=== PATIENT | female | born 1995 | race Hispanic/Latino ===

== ENCOUNTER 2017-06-14 23:43 | Inpatient (IN) | payer OTHER ==
--- NOTE | 2017-06-15 00:29 | ED PDOC ---
Arrival/HPI - General Chief Complaint: Psychiatric Evaluation Time Seen by Provider: 06/14/17 23:49 Historian: Patient - History of Present Illness Narrative History of Present Illness (Text): 06/15/17 00:27 A 22 year old female, whose past medical history includes depression and anxiety , presents to the emergency department for Xanax and Buspar medication overdose an hour and half prior to arrival. Patient's mother reports vomiting prior to arrival. Patient doesn't recall how much medication she overdosed on. Patient wouldn't elaborate any further as to why she took medication. Patient notes she had suicidal thoughts in the past, but this was the first time she tried to hurt herself. Notes she ran out of her Lexapro medications a week ago. Denies any other complaints at this time. Psychiatrist: Dr. Mac Medications: Xanax, Buspar, Lexapro Time/Duration: 1-3 hours Symptom Onset: Sudden Activities at Onset: Rest Context: Home Past Medical History - Provider Review Nursing Documentation Reviewed: Yes - Psychiatric Hx Anxiety: Yes Hx Depression: Yes Hx Substance Use: No Family/Social History - Physician Review Nursing Documentation Reviewed: Yes Family/Social History: No Known Family HX Smoking Status: Never Smoked Hx Alcohol Use: Yes (beer) Frequency of alcohol use: Daily Hx Substance Use: No Allergies/Home Meds Allergies/Adverse Reactions: Allergies No Known Allergies Allergy (Verified 06/15/17 00:02) Home Medications: Home Meds Medication Instructions Recorded Confirmed Alprazolam [Xanax] 0.25 mg PO BID 06/15/17 06/15/17 Escitalopram [Lexapro] 30 mg PO DAILY 06/15/17 06/15/17 busPIRone [Buspar] 30 mg PO DAILY 06/15/17 06/15/17 Review of Systems - Physician Review All systems were reviewed & negative as marked: Yes - Review of Systems Constitutional: absent: Fevers, Other (chills) Neurological: absent: Headache, Dizziness Psychiatric: Depression, Suicidal Ideation Physical Exam Vital Signs Reviewed: Yes Vital Signs Temp Pulse Resp BP Pulse Ox 06/15/17 02:18 58 L 18 113/62 99 06/15/17 00:22 112 H 20 116/77 98 06/15/17 00:03 98.2 F Temperature: Afebrile Appearance: Positive for: Well-Appearing, Non-Toxic, Comfortable Pain Distress: None Mental Status: Positive for: Alert and Oriented X 3 - Systems Exam Head: Present: Atraumatic, Normocephalic Pupils: Present: PERRL Extroacular Muscles: Present: EOMI Conjunctiva: Present: Normal Mouth: Present: Moist Mucous Membranes Neck: Present: Normal Range of Motion Respiratory/Chest: Present: Clear to Auscultation, Good Air Exchange. No: Respiratory Distress, Accessory Muscle Use Cardiovascular: Present: Regular Rate and Rhythm, Normal S1, S2. No: Murmurs Abdomen: Present: Normal Bowel Sounds. No: Tenderness, Distention, Peritoneal Signs Back: Present: Normal Inspection Upper Extremity: Present: Normal Inspection. No: Cyanosis, Edema Lower Extremity: Present: Normal Inspection. No: Edema Neurological: Present: GCS=15, CN II-XII Intact, Speech Normal Skin: Present: Warm, Dry, Normal Color. No: Rashes Psychiatric: Present: Alert, Oriented x 3, Normal Insight, Normal Concentration Medical Decision Making ED Course and Treatment: 06/15/17 00:25 Impression: A 22 year old female with Xanax and Buspar medication overdose. Plan: -- EKG -- chest xray -- labs -- Urinalysis -- Reassess and disposition Progress Notes: 06/15/17 00:40 EKG: Ordered, reviewed, and independently interpreted the EKG. Rate : 77 BPM Rhythm : NSR Interpretation : No ST-segment elevations or depressions, normal intervals 06/15/17 01:24 Chest xray: No acute process, interpreted by me. 06/15/17 04:00 Patient remains awake and alert. Poison control notified prior. Patient is medically cleared for PES evaluation. She was seen and evaluated by MARILYN Basurto. Case discussed with psychiatrist, who accepts patient to psychiatric floor for further treatment. I have discussed the results and plan with the patient, who expresses understanding. Patient given the opportunity to ask question, all questions were answered and there is agreement with the plan to be admitted to the hospital. - Lab Interpretations Lab Results: 06/15/17 00:20 06/15/17 00:20 Lab Results 06/15/17 00:20: Alcohol, Quantitative 17 H 06/15/17 00:20: Salicylates < 1 L, Acetaminophen < 10.0 L 06/15/17 00:20: Urine Opiates Screen Negative, Urine Methadone Screen Negative, Ur Barbiturates Screen Negative, Ur Phencyclidine Scrn Negative, Ur Amphetamines Screen Negative, U Benzodiazepines Scrn Positive, U Oth Cocaine Metabols Negative, U Cannabinoids Screen Negative 06/15/17 00:20: Sodium 139, Potassium 3.6, Chloride 102, Carbon Dioxide 25, Anion Gap 16, BUN 10, Creatinine 0.7, Est GFR ( Amer) > 60, Est GFR (Non- Af Amer) > 60, Random Glucose 89, Calcium 9.2, Total Bilirubin 0.8, AST 23, ALT 26, Alkaline Phosphatase 64, Total Protein 6.9, Albumin 4.3, Globulin 2.6, Albumin/Globulin Ratio 1.7 06/15/17 00:20: WBC 4.2 L, RBC 4.07, Hgb 12.7, Hct 36.7, MCV 90.2, MCH 31.2, MCHC 34.6, RDW 13.4, Plt Count 251, MPV 9.1, Gran % 58.4, Lymph % (Auto) 33.7, [place] % (Auto) 6.5 H, Eos % (Auto) 1.2 L, Baso % (Auto) 0.2, Gran # 2.44, Lymph # 1.4, [place] # 0.3, Eos # 0.1, Baso # 0.01 06/15/17 00:10: Urine HCG, Qual Negative 06/15/17 00:10: Urine Color Yellow, Urine Appearance Clear, Urine pH 6.0, Ur Specific [place] 1.010, Urine Protein Negative, Urine Glucose (UA) Negative, Urine Ketones Negative, Urine Blood Small H, Urine Nitrate Negative, Urine Bilirubin Negative, Urine Urobilinogen 0.2, Ur Leukocyte Esterase Small H, Urine RBC 1 - 3, Urine WBC 2 - 5, Ur Epithelial Cells 1 - 3, Urine Bacteria Mod I have reviewed the lab results: Yes - RAD Interpretation Radiology Orders: 06/15/17 00:10 CHEST PORTABLE [RAD] Stat - EKG Interpretation Interpreted by ED Physician: Yes Type: 12 lead EKG - Scribe Statement The provider has reviewed the documentation as recorded by the Erickibestefania Flynn Provider Scribe Attestation: All medical record entries made by the Scribe were at my direction and personally dictated by me. I have reviewed the chart and agree that the record accurately reflects my personal performance of the history, physical exam, medical decision making, and the department course for this patient. I have also personally directed, reviewed, and agree with the discharge instructions and disposition. Disposition/Present on Arrival - Present on Arrival Any Indicators Present on Arrival: No History of DVT/PE: No History of Uncontrolled Diabetes: No Urinary Catheter: No History of Decub. Ulcer: No History Surgical Site Infection Following: None - Disposition Have Diagnosis and Disposition been Completed?: Yes Diagnosis: Drug overdose, Depression, Suicidal ideation Disposition: HOSPITALIZED Disposition Time: 04:27 Patient Plan: Admission Patient Problems: Current Active Problems Problem Status Onset Depression Acute Drug overdose Acute Suicidal ideation Acute Condition: STABLE Forms: [employer] (Japanese)
[2017-06-15 00:53] LABS: BASO # 0.01 K/mm3 (0.0-2.0); BASO % 0.2 % (0.0-3.0); EOS # 0.1 (0.0-0.7); EOS % 1.2 % (1.5-5.0); GRAN # 2.44 (1.4-6.5); GRAN % 58.4 % (50.0-68.0); HEMATOCRIT 36.7 % (36.0-48.0); LYMPH # 1.4 (1.2-3.4); LYMPH % 33.7 % (22.0-35.0); MEAN CELL VOLUME 90.2 fl (80.0-105.0); MEAN CORPUSCULAR HEMOGLOBIN 31.2 pg (25.0-35.0); MEAN CORPUSCULAR HGB CONC 34.6 g/dl (31.0-37.0); MEAN PLATELET VOLUME 9.1 fl (7.0-11.0); MONO # 0.3 (0.1-0.6); MONO % 6.5 % (1.0-6.0); RED CELL DISTRIBUTION WIDTH 13.4 % (11.5-14.5); WHITE BLOOD COUNT 4.2 10^3/ul (4.5-11.0)
[2017-06-15 00:53] LABS: URINE BILIRUBIN NEGATIVE (NEGATIVE); URINE BLOOD SMALL (NEGATIVE); URINE GLUCOSE (UA) NEGATIVE (NEGATIVE); URINE KETONE NEGATIVE (NEGATIVE); URINE LEUKOCYTE ESTERASE SMALL Leu/uL (NEGATIVE); URINE PROTEIN NEGATIVE mg/dL (<30 mg/dL); URINE UROBILINOGEN 0.2 E.U./dL (<1 E.U./dL)
[2017-06-15 00:57] LABS: URINE APPEARANCE CLEAR (CLEAR); URINE COLOR YELLOW (YELLOW)
[2017-06-15 01:05] LABS: URINE BACTERIA MOD (NEG)
[2017-06-15 01:07] LABS: ALB/GLOB RATIO 1.7 (1.1-1.8); ALKALINE PHOSPHATASE 64 U/L (38-126); ALT/SGPT 26 U/L (7-56); AST/SGOT 23 U/L (14-36); BILIRUBIN,TOTAL 0.8 mg/dL (0.2-1.3); BLOOD UREA NITROGEN 10 mg/dL (7-21); CALCIUM 9.2 mg/dL (8.4-10.5); CARBON DIOXIDE 25 mmol/L (21-33); CHLORIDE 102 mmol/L (98-107); GFR AFRICAN-AMERICAN > 60; GLUCOSE,RANDOM 89 mg/dL (70-110); POTASSIUM 3.6 mmol/L (3.6-5.0); SODIUM 139 mmol/L (132-148); TOTAL PROTEIN 6.9 g/dL (5.8-8.3)
--- NOTE | 2017-06-15 06:59 | PCM.BM ---
<Ottoniel Wilkes - Last Filed: 06/15/17 07:05> Treatment Plan Problems - Problems identified on initial assessmt depression Date Initiated: 06/15/17 Time Initiated: 06:00 Assessment reference: NA Status: Active Treatment assets and liabiliti Patient Assests: ADL independent, good support system, good past tx response - Milieu Protocol Maintain good personal hygiene: daily Encourage regular showers, daily Remind patient to perform daily oral care, daily Assist patient to perform ADL's Maintain personal safety: daily Educate patient to report safety concerns to staff, daily Monitor environment for contraband/sharps Medication safety: Monitor for expected outcome, potential side effects: daily, Assess barriers to learning: daily, Assess readiness for medication education: daily Family Contact Family involvement: Family/SO is involved Family contact: Patient declines to allow family contact at present Family contact name: Sendy Rodriguez *[phone] - Goals for Treatment Patient goals for treatment: To get better Discharge/Continuing Care - Education Needs Education Needs: Patient Medication, Patient Diagnosis/Disease Process, Patient Coping Skills - Discharge Discharge Criteria: Free of Suicidal thoughts <Maddi Simons - Last Filed: 06/15/17 09:50> - Diagnosis (1) MDD (major depressive disorder) Status: Acute Interventions: 06/15/17 09:50 Psychoeducation Psychopharmacology/adjustment of medications as needed/ monitoring possible side effects Evaluate pt on daily basis Compliance with medications and follow up appointments Suicide and homicide risk assessment and prevention Relapse prevention Reduction of symptoms Improve functional status Family involvement As outpatient: cognitive behavioral therapy (2) THI (generalized anxiety disorder) Status: Acute Interventions: 06/15/17 09:50 Psychoeducation Psychopharmacology/adjustment of medications as needed/ monitoring possible side effects Evaluate pt on daily basis Compliance with medications and follow up appointments Suicide and homicide risk assessment and prevention, coping strategies, safety plan Reduction of symptoms Relaxation techniques and breathing exercises Improve functional status Family involvement As outpatient: cognitive behavioral therapy <Janel Guzman - Last Filed: 06/16/17 08:11>
[2017-06-15 07:44] LABS: CHOLESTEROL 203 mg/dL (130-200)
[2017-06-15] MEDS ORDERED: Magnesium Hydroxide Susp 30 ml UD PO PRN (08:52)
[2017-06-15] MEDS ORDERED: Alum-Mag Hydrox-Simethicone Susp (30 mL) PO PRN (08:52)
--- NOTE | 2017-06-15 10:42 | CP.PCM.CON ---
<Izabella Gonzales - Last Filed: 06/16/17 10:07> History of Present Illness - History of Present Illness History of Present Illness: Medicine Consult Note: Patient is a 22 year old female with past medical hx of anxiety/depression [place] [facility] [place]. Patient was home and took xanax and buspar, (unclear how many pills she took) with alcohol. Patient stated mother made her vomit and brought her to the ED. Currently patient is without any complaints. States that this was the first suicide attempt. Currently denies SI/HI, denies auditory/visual hallucinations. Denies headaches, dizziness , cp, palpitations, sob, abdominal pain, urinary symptoms, changes in bowel habits. 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 [employer] Family History: Older sister with bipolar d/o and hx of suicide attempts Review of Systems - Review of Systems All systems: reviewed and no additional remarkable complaints except - Constitutional Constitutional: absent: Anorexia, Chills, Fever - EENT Eyes: absent: Blurred Vision, Change in Vision Ears: absent: Decreased Hearing, Dizziness - Cardiovascular Cardiovascular: absent: Chest Pain, Dyspnea, Lightheadedness, Palpitations - Gastrointestinal Gastrointestinal: absent: Abdominal Pain, Bloating, Constipation, Cramping, Diarrhea, Nausea, Vomiting - Genitourinary Genitourinary: absent: Difficulty Urinating, Dysuria, Urinary Frequency - Musculoskeletal Musculoskeletal: absent: Back Pain - Neurological Neurological: absent: Confusion, Dizziness, Headaches, Tingling, Weakness - Psychiatric Psychiatric: Anxiety, Depression. absent: Auditory Hallucinations, Homicidal Ideation, Suicidal Ideation, Visual Hallucinations Past Patient History - Past Social History Smoking Status: Never Smoked - CARDIAC Hx Cardiac Disorders: No Hx Hypertension: No - PULMONARY Hx Tuberculosis: No - NEUROLOGICAL HX Cerebrovascular Accident: No Hx Seizures: No - HEMATOLOGICAL/ONCOLOGICAL Hx Cancer: No Hx Human Immunodeficiency Virus (HIV): No - GENITOURINARY/GYNECOLOGICAL Hx Sexually Transmitted Disorders: No - PSYCHIATRIC Hx Anxiety: Yes Hx Depression: Yes Hx Substance Use: No - SURGICAL HISTORY Hx Surgeries: No - ANESTHESIA Hx Anesthesia: No Meds Allergies/Adverse Reactions: Allergies Allergy/AdvReac Type Severity Reaction Status Date / Time No Known Allergies Allergy Verified 06/15/17 06:20 - Medications Medications: Current Medications Acetaminophen (Tylenol 325mg Tab) 650 mg PO Q4 PRN PRN Reason: Pain, moderate (4-7) Al Hydrox/Mg Hydrox/Simethicone (Maalox Plus 30 Ml) 30 ml PO DAILY PRN PRN Reason: Upset Stomach Magnesium Hydroxide (Milk Of Magnesia) 30 ml PO DAILY PRN PRN Reason: Constipation Physical Exam - Constitutional Appears: Well, No Acute Distress - Head Exam Head Exam: ATRAUMATIC, NORMAL INSPECTION - Eye Exam Eye Exam: EOMI, Normal appearance Pupil Exam: NORMAL ACCOMODATION - ENT Exam ENT Exam: Mucous Membranes Moist - Neck Exam Neck exam: Positive for: Full Rom - Respiratory Exam Respiratory Exam: Clear to Auscultation Bilateral, NORMAL BREATHING PATTERN. absent: Rales, Rhonchi, Wheezes - Cardiovascular Exam Cardiovascular Exam: REGULAR RHYTHM, +S1 - GI/Abdominal Exam GI & Abdominal Exam: Normal Bowel Sounds, Soft. absent: Guarding, Rebound, Rigid, Tenderness - Extremities Exam Extremities exam: Positive for: normal inspection, pedal pulses present. Negative for: calf tenderness - Back Exam Back exam: NORMAL INSPECTION - Neurological Exam Neurological exam: Alert, CN II-XII Intact, Normal Gait, Oriented x3 - Psychiatric Exam Psychiatric exam: Anxious, Depressed, Normal Affect - Skin Skin Exam: Dry, Normal Color, Warm Results - Vital Signs Recent Vital Signs: Last Vital Signs Temp 98.1 F 06/15/17 04:00 Pulse 68 06/15/17 04:00 Resp 18 06/15/17 04:00 BP 118/68 06/15/17 04:00 Pulse Ox 100 06/15/17 04:00 - Labs Result Diagrams: 06/15/17 00:20 06/15/17 00:20 Assessment & Plan - Assessment and Plan (Free Text) Assessment: 22 year old female with past medical history of anxiety and depression presents for suicide attempt by pill ingestion. Plan: 1. Suicidal Ideation; Suicide attempt -Currently denies SI or HI -Utox positive for benzos -Alcohol level 17 -Management per psych team 2. Hypercholesterolemia -Encouraging exercise and diet modification at this time -[employer] Worker referral <Rangasamy,Ajantha - Last Filed: 06/16/17 11:58> Meds - Medications Medications: Current Medications Acetaminophen (Tylenol 325mg Tab) 650 mg PO Q4 PRN PRN Reason: Pain, moderate (4-7) Al Hydrox/Mg Hydrox/Simethicone (Maalox Plus 30 Ml) 30 ml PO DAILY PRN PRN Reason: Upset Stomach Aripiprazole (Abilify) 5 mg PO BID LUISITO Fluoxetine HCl (Prozac) 20 mg PO DAILY LUISITO Home Med (Home Med) 1 unit PO DAILY LUISITO Last Admin: 06/16/17 08:38 Dose: 1 unit Magnesium Hydroxide (Milk Of Magnesia) 30 ml PO DAILY PRN PRN Reason: Constipation Mirtazapine (Remeron) 7.5 mg PO HS PRN PRN Reason: Insomnia Results - Vital Signs Recent Vital Signs: Last Vital Signs Temp 98.3 F 06/16/17 06:55 Pulse 93 H 06/16/17 06:55 Resp 20 06/16/17 06:55 BP 97/57 L 06/16/17 06:55 Pulse Ox 100 06/15/17 04:00 - Labs Result Diagrams: 06/15/17 00:20 06/15/17 00:20 Attending/Attestation - Attestation I have personally seen and examined this patient.: Yes I have fully participated in the care of the patient.: Yes I have reviewed all pertinent clinical information: Yes Notes (Text): 06/16/17 11:56 attending note; Patient seen and examined with resident in psychiatric floor. Patient is a 22 year old female with past medical history of anxiety/depression [place] [facility] [place] Patient was home and took xanax and buspar. patient was evaluated in the ER. Clinically stable. Poison control informed. Patient was transferred to the psychiatric floor. Currently denies any symptoms. Patient is sleepy. urine drug screen is positive for benzos. Alcohol level is 17. Monitor closely. Chest x-ray reviewed. Labs reviewed. Elevated cholesterol level. Dietary education given. Will monitor closely. Upon discharge the patient will follow-up with PMD of choice. 06/16/17 11:57
--- NOTE | 2017-06-15 13:07 | RAD ---
HISTORY: overdose COMPARISON: No prior. FINDINGS: LUNGS: No active pulmonary disease. PLEURA: No significant pleural effusion identified, no pneumothorax apparent. CARDIOVASCULAR: Normal. OSSEOUS STRUCTURES: No significant abnormalities. VISUALIZED UPPER ABDOMEN: Normal. OTHER FINDINGS: None. IMPRESSION: No active disease.
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
--- NOTE | 2017-06-16 02:42 | CARD ---
APPROVED REPORT EKG Measurement Heart [id number] <Conclusion> Normal sinus rhythm Normal ECG
[2017-06-16] MEDS: [UNRECOGNIZED DRUG - MIXTURE] PO SCH (08:38)
--- NOTE | 2017-06-16 10:10 | CP.PCM.PN ---
<Izabella Gonzales - Last Filed: 06/16/17 10:12> Subjective - Date & Time of Evaluation Date of Evaluation: 06/16/17 Time of Evaluation: 10:07 - Subjective Subjective: Hospitalist Service Progress Note: Patient seen and examined at bedside. Per nursing no acute events overnight. Patient is more alert this morning, less tired. Offers no complaints at this time. Ambulating and tolerating diet. Denies fevers, chills, nausea, vomiting, headaches, dizziness, cp, palpitations, sob, abdominal pain, urinary symptoms. Denies auditory/visual hallucinations, denies SI/HI. Objective - Vital Signs/Intake and Output Vital Signs (last 24 hours): Temp Pulse Resp BP Pulse Ox 98.3 F 93 H 20 97/57 L 100 06/16/17 06:55 06/16/17 06:55 06/16/17 06:55 06/16/17 06:55 06/15/17 04:00 - Medications Medications: Current Medications Acetaminophen (Tylenol 325mg Tab) 650 mg PO Q4 PRN PRN Reason: Pain, moderate (4-7) Al Hydrox/Mg Hydrox/Simethicone (Maalox Plus 30 Ml) 30 ml PO DAILY PRN PRN Reason: Upset Stomach Aripiprazole (Abilify) 5 mg PO DAILY [facility] Last Admin: 06/16/17 08:38 Dose: 5 mg Fluoxetine HCl (Prozac) 10 mg PO DAILY [facility] Last Admin: 06/16/17 08:38 Dose: 10 mg Home Med (Home Med) 1 unit PO DAILY [facility] Last Admin: 06/16/17 08:38 Dose: 1 unit Magnesium Hydroxide (Milk Of Magnesia) 30 ml PO DAILY PRN PRN Reason: Constipation Mirtazapine (Remeron) 7.5 mg PO HS PRN PRN Reason: Insomnia - Constitutional Appears: Well, No Acute Distress - Head Exam Head Exam: ATRAUMATIC, NORMAL INSPECTION - Eye Exam Eye Exam: EOMI, Normal appearance Pupil Exam: NORMAL ACCOMODATION - ENT Exam ENT Exam: Mucous Membranes Moist - Neck Exam Neck Exam: Full ROM - Respiratory Exam Respiratory Exam: Clear to Ausculation Bilateral, NORMAL BREATHING PATTERN. absent: Rales, Rhonchi, Wheezes - Cardiovascular Exam Cardiovascular Exam: REGULAR RHYTHM, +S1, +S2 - GI/Abdominal Exam GI & Abdominal Exam: Soft. absent: Guarding, Rigid, Tenderness, Rebound - Extremities Exam Extremities Exam: Full ROM, Normal Inspection. absent: Calf Tenderness - Back Exam Back Exam: NORMAL INSPECTION - Neurological Exam Neurological Exam: Alert, Awake, Normal Gait, Oriented x3 Neuro motor strength exam: Left Upper Extremity: 5, Right Upper Extremity: 5, Left Lower Extremity: 5, Right Lower Extremity: 5 - Psychiatric Exam Psychiatric exam: Normal Affect, Normal Mood - Skin Skin Exam: Normal Color, Warm Assessment and Plan - Assessment and Plan (Free Text) Assessment: 22 year old female with past medical history of anxiety and depression presents for suicide attempt by pill ingestion. Plan: 1. Suicidal Ideation; Suicide attempt -Currently denies SI or HI -Utox positive for benzos -Alcohol level 17 -Management per psych team 2. Hypercholesterolemia -Encouraging exercise and diet modification at this time -[employer] referral -Patient is medically stable, will sign off at this time -Please reconsult as needed Izabella Gonzales DO PGY-1 <Alo Rosas - Last Filed: 06/16/17 12:34> Objective - Vital Signs/Intake and Output Vital Signs (last 24 hours): Temp Pulse Resp BP Pulse Ox 98.3 F 93 H 20 97/57 L 100 06/16/17 06:55 06/16/17 06:55 06/16/17 06:55 06/16/17 06:55 06/15/17 04:00 - Medications Medications: Current Medications Acetaminophen (Tylenol 325mg Tab) 650 mg PO Q4 PRN PRN Reason: Pain, moderate (4-7) Al Hydrox/Mg Hydrox/Simethicone (Maalox Plus 30 Ml) 30 ml PO DAILY PRN PRN Reason: Upset Stomach Aripiprazole (Abilify) 5 mg PO BID [facility] Fluoxetine HCl (Prozac) 20 mg PO DAILY [facility] Home Med (Home Med) 1 unit PO DAILY [facility] Last Admin: 06/16/17 08:38 Dose: 1 unit Magnesium Hydroxide (Milk Of Magnesia) 30 ml PO DAILY PRN PRN Reason: Constipation Mirtazapine (Remeron) 7.5 mg PO HS PRN PRN Reason: Insomnia Attending/Attestation - Attestation I have personally seen and examined this patient.: Yes I have fully participated in the care of the patient.: Yes I have reviewed all pertinent clinical information, including history, physical exam and plan: Yes Notes (Text): 06/16/17 12:33 attending note; Patient seen and examined with resident in psychiatric floor. Patient is a 22 year old female with past medical history of anxiety/depression presents to [facility] [place] for prescription drug overdose. Patient was home and took xanax and buspar. patient is more alert. But still depressed. Encourage increased by mouth intake. Blood presse on the lower side. but aymptomatic. monitor closely. patient is medically stable. Please reconsult as needed. Upon discharge the patient will follow-up with PMD of choice.
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
[2017-06-17] MEDS: [UNRECOGNIZED DRUG - MIXTURE] PO SCH (08:20)
--- NOTE | 2017-06-17 14:19 | PCM.PYCHPN ---
Psychiatric Progress Note - Psychiatric Progress Note Patient seen today, length of contact: 30min Patient Chief Complaint: "I am more balanced now.." Medical Problems: relatively healthy Diagnostic Results: 06/15/17 00:20 06/15/17 00:20 Lab Results 06/16/17 12:25: TSH 3rd Generation 0.75 06/15/17 00:20: Hemoglobin A1c 4.9 06/15/17 00:20: Triglycerides 73, Cholesterol 203 H, LDL Cholesterol Direct 133 H, HDL Cholesterol 66 H 06/15/17 00:20: Alcohol, Quantitative 17 H 06/15/17 00:20: Salicylates < 1 L, Acetaminophen < 10.0 L 06/15/17 00:20: Urine Opiates Screen Negative, Urine Methadone Screen Negative, Ur Barbiturates Screen Negative, Ur Phencyclidine Scrn Negative, Ur Amphetamines Screen Negative, U Benzodiazepines Scrn Positive, U Oth Cocaine Metabols Negative, U Cannabinoids Screen Negative 06/15/17 00:20: Sodium 139, Potassium 3.6, Chloride 102, Carbon Dioxide 25, Anion Gap 16, BUN 10, Creatinine 0.7, Est GFR ( Amer) > 60, Est GFR (Non- Af Amer) > 60, Random Glucose 89, Calcium 9.2, Total Bilirubin 0.8, AST 23, ALT 26, Alkaline Phosphatase 64, Total Protein 6.9, Albumin 4.3, Globulin 2.6, Albumin/Globulin Ratio 1.7 06/15/17 00:20: WBC 4.2 L, RBC 4.07, Hgb 12.7, Hct 36.7, MCV 90.2, MCH 31.2, MCHC 34.6, RDW 13.4, Plt Count 251, MPV 9.1, Gran % 58.4, Lymph % (Auto) 33.7, [place] % (Auto) 6.5 H, Eos % (Auto) 1.2 L, Baso % (Auto) 0.2, Gran # 2.44, Lymph # 1.4, [place] # 0.3, Eos # 0.1, Baso # 0.01 06/15/17 00:10: Urine HCG, Qual Negative 06/15/17 00:10: Urine Color Yellow, Urine Appearance Clear, Urine pH 6.0, Ur Specific [place] 1.010, Urine Protein Negative, Urine Glucose (UA) Negative, Urine Ketones Negative, Urine Blood Small H, Urine Nitrate Negative, Urine Bilirubin Negative, Urine Urobilinogen 0.2, Ur Leukocyte Esterase Small H, Urine RBC 1 - 3, Urine WBC 2 - 5, Ur Epithelial Cells 1 - 3, Urine Bacteria Mod Vital Signs Temp Pulse Resp BP Pulse Ox 06/16/17 06:55 98.3 F 93 H 20 97/57 L 06/15/17 16:00 98 H 97/55 L 06/15/17 04:00 98.1 F 68 18 118/68 100 06/15/17 02:18 58 L 18 113/62 99 06/15/17 00:22 112 H 20 116/77 98 06/15/17 00:03 98.2 F DSM 5 Symptoms Update: Shortly patient is 22-year-old female with unknown psychiatric h/o, unknown h/o suicidal attempts, self reported h/o depression, anxiety, denied h/ o suicidal attempts, pt was brought in by her mother s/p overdose on medications , pt made statements that she wanted to end up her live due to severe depression , pt was noncompliant with her medications for the past week (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 pt was seen and examined next to the nursing station, pt has some positive changes, less irritable, less dramatic, more pleasant. still pt appears to be depressed. pt was making provocative statements about access to guns (which seems to be not true), pt also said that she is an "alcoholic", which is not true either. pt seems to be over exaggerating, dramatic. pt was given assignment for safety plan: "first I will try to speak to my friends, then I will try to distract myself with the movies, then I will try to play games, if no help, then I will drink alcohol or take melatonin and sleep through that overwhelming feelings", pt was advised to stay on safe side and call 911 or go to the nearest ED. Pt tolerates meds well, no side effects observed or reported. AIMS 0, no EPS. MSE: Pt deemed to be reliable but guarded patient, but less suspicious. Pt looks stated age, acceptable personal hygiene, good ADLs, there is some psychomotor retardation, speech was: more productive, eye contact: fair, mood described: "I feel more leveled now", affect: constricted, but more reactive, thought process : goal directed, thought content: pt s/p suicidal attempt, at the moment of the interview contracted for safety, denied HI, pt denied v/a/t hallucinations, denied paranoid ideation, insight/judgment:improving, impulses are better controlled. Impression: r/o bipolar spectrum disorder, most recent episode depressed r/o borderline personality disorder Treatment plan: Milieu/structure/supportive therapy Medical consult appreciated, see medical team note for more detailed info Med management prozac 20mg po daily for depressive symptoms abilify 5 mg po bid for mood stabilization remeron 7.5hs for insomnia and depression Family involvement, family meeting requested for Tuesday Follow up on labs Will monitor closely SW evaluation for d/c planning Pt was educated about risk/benefits and alternatives of medications, coping strategies (safety plan, suicide prevention), relapse prevention, importance of follow up with psychiatrist and therapist, stay away from drugs/alcohol/smoking Medication Change: Yes (prozac and abilify increased) Medical Record Reviewed: Yes Consults ordered or reviewed: medical consult appreciated Mental Status Examination - Homicidal Ideation Homicidal Ideation: No Goal/Treatment Plan - Goal/Treatment Plan Need for Continued Stay: Remain at risks for inpatient hospitalization, Severe depression anxiety, Discharge may exacerbated symptoms, Severe functional impairment Estimated Date of D/C: 06/21/17
[2017-06-18] MEDS: [UNRECOGNIZED DRUG - MIXTURE] PO SCH (09:30)
--- NOTE | 2017-06-18 11:06 | PCM.PYCHPN ---
Psychiatric Progress Note - Psychiatric Progress Note Patient seen today, length of contact: 30min Patient Chief Complaint: "I am more balanced now.." Medical Problems: relatively healthy Diagnostic Results: 06/15/17 00:20 06/15/17 00:20 Lab Results 06/16/17 12:25: TSH 3rd Generation 0.75 06/15/17 00:20: Hemoglobin A1c 4.9 06/15/17 00:20: Triglycerides 73, Cholesterol 203 H, LDL Cholesterol Direct 133 H, HDL Cholesterol 66 H 06/15/17 00:20: Alcohol, Quantitative 17 H 06/15/17 00:20: Salicylates < 1 L, Acetaminophen < 10.0 L 06/15/17 00:20: Urine Opiates Screen Negative, Urine Methadone Screen Negative, Ur Barbiturates Screen Negative, Ur Phencyclidine Scrn Negative, Ur Amphetamines Screen Negative, U Benzodiazepines Scrn Positive, U Oth Cocaine Metabols Negative, U Cannabinoids Screen Negative 06/15/17 00:20: Sodium 139, Potassium 3.6, Chloride 102, Carbon Dioxide 25, Anion Gap 16, BUN 10, Creatinine 0.7, Est GFR ( Amer) > 60, Est GFR (Non- Af Amer) > 60, Random Glucose 89, Calcium 9.2, Total Bilirubin 0.8, AST 23, ALT 26, Alkaline Phosphatase 64, Total Protein 6.9, Albumin 4.3, Globulin 2.6, Albumin/Globulin Ratio 1.7 06/15/17 00:20: WBC 4.2 L, RBC 4.07, Hgb 12.7, Hct 36.7, MCV 90.2, MCH 31.2, MCHC 34.6, RDW 13.4, Plt Count 251, MPV 9.1, Gran % 58.4, Lymph % (Auto) 33.7, [place] % (Auto) 6.5 H, Eos % (Auto) 1.2 L, Baso % (Auto) 0.2, Gran # 2.44, Lymph # 1.4, [place] # 0.3, Eos # 0.1, Baso # 0.01 06/15/17 00:10: Urine HCG, Qual Negative 06/15/17 00:10: Urine Color Yellow, Urine Appearance Clear, Urine pH 6.0, Ur Specific [place] 1.010, Urine Protein Negative, Urine Glucose (UA) Negative, Urine Ketones Negative, Urine Blood Small H, Urine Nitrate Negative, Urine Bilirubin Negative, Urine Urobilinogen 0.2, Ur Leukocyte Esterase Small H, Urine RBC 1 - 3, Urine WBC 2 - 5, Ur Epithelial Cells 1 - 3, Urine Bacteria Mod Vital Signs Temp Pulse Resp BP Pulse Ox 06/16/17 06:55 98.3 F 93 H 20 97/57 L 06/15/17 16:00 98 H 97/55 L 06/15/17 04:00 98.1 F 68 18 118/68 100 06/15/17 02:18 58 L 18 113/62 99 06/15/17 00:22 112 H 20 116/77 98 06/15/17 00:03 98.2 F DSM 5 Symptoms Update: Shortly patient is 22-year-old female with unknown psychiatric h/o, unknown h/o suicidal attempts, self reported h/o depression, anxiety, denied h/ o suicidal attempts, pt was brought in by her mother s/p overdose on medications , pt made statements that she wanted to end up her live due to severe depression , pt was noncompliant with her medications for the past week (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 Pt has some positive changes , less irritable, less dramatic, more pleasant. still pt appears to be depressed , but affect is more reactive, pt said that she tolerates Prozac well, asked to increase it further. pt was making provocative statements about access to guns (which seems to be not true), pt also said that she is an "alcoholic", which is not true either. pt seems to be over exaggerating, dramatic. Pt tolerates meds well, dizziness on Remeron. AIMS 0, no EPS. MSE: Pt deemed to be reliable but guarded patient, but less suspicious. Pt looks stated age, acceptable personal hygiene, good ADLs, there is some psychomotor retardation, speech was: more productive, eye contact: fair, mood described: "I feel more leveled now", affect: constricted, but more reactive, thought process : goal directed, thought content: pt s/p suicidal attempt, at the moment of the interview contracted for safety, denied HI, pt denied v/a/t hallucinations, denied paranoid ideation, insight/judgment:improving, impulses are better controlled. Impression: r/o bipolar spectrum disorder, most recent episode depressed r/o borderline personality disorder Treatment plan: Milieu/structure/supportive therapy Medical consult appreciated, see medical team note for more detailed info Med management prozac 30mg po daily for depressive symptoms abilify 5 mg po bid for mood stabilization remeron d/c benadryl PRN for finsomnia Family involvement, family meeting requested for Tuesday Follow up on labs Will monitor closely SW evaluation for d/c planning Pt was educated about risk/benefits and alternatives of medications, coping strategies (safety plan, suicide prevention), relapse prevention, importance of follow up with psychiatrist and therapist, stay away from drugs/alcohol/smoking Medication Change: Yes (prozac increased) Medical Record Reviewed: Yes Consults ordered or reviewed: medical consult appreciated Mental Status Examination - Homicidal Ideation Homicidal Ideation: No Goal/Treatment Plan - Goal/Treatment Plan Need for Continued Stay: Remain at risks for inpatient hospitalization, Severe depression anxiety, Discharge may exacerbated symptoms, Severe functional impairment Estimated Date of D/C: 06/21/17
[2017-06-19] MEDS: [UNRECOGNIZED DRUG - MIXTURE] PO SCH (08:25)
--- NOTE | 2017-06-19 11:54 | PCM.PYCHPN ---
Psychiatric Progress Note - Psychiatric Progress Note Patient seen today, length of contact: 30min Patient Chief Complaint: "I am more balanced now.." Medical Problems: relatively healthy Diagnostic Results: 06/15/17 00:20 06/15/17 00:20 Lab Results 06/16/17 12:25: TSH 3rd Generation 0.75 06/15/17 00:20: Hemoglobin A1c 4.9 06/15/17 00:20: Triglycerides 73, Cholesterol 203 H, LDL Cholesterol Direct 133 H, HDL Cholesterol 66 H 06/15/17 00:20: Alcohol, Quantitative 17 H 06/15/17 00:20: Salicylates < 1 L, Acetaminophen < 10.0 L 06/15/17 00:20: Urine Opiates Screen Negative, Urine Methadone Screen Negative, Ur Barbiturates Screen Negative, Ur Phencyclidine Scrn Negative, Ur Amphetamines Screen Negative, U Benzodiazepines Scrn Positive, U Oth Cocaine Metabols Negative, U Cannabinoids Screen Negative 06/15/17 00:20: Sodium 139, Potassium 3.6, Chloride 102, Carbon Dioxide 25, Anion Gap 16, BUN 10, Creatinine 0.7, Est GFR ( Amer) > 60, Est GFR (Non- Af Amer) > 60, Random Glucose 89, Calcium 9.2, Total Bilirubin 0.8, AST 23, ALT 26, Alkaline Phosphatase 64, Total Protein 6.9, Albumin 4.3, Globulin 2.6, Albumin/Globulin Ratio 1.7 06/15/17 00:20: WBC 4.2 L, RBC 4.07, Hgb 12.7, Hct 36.7, MCV 90.2, MCH 31.2, MCHC 34.6, RDW 13.4, Plt Count 251, MPV 9.1, Gran % 58.4, Lymph % (Auto) 33.7, [place] % (Auto) 6.5 H, Eos % (Auto) 1.2 L, Baso % (Auto) 0.2, Gran # 2.44, Lymph # 1.4, [place] # 0.3, Eos # 0.1, Baso # 0.01 06/15/17 00:10: Urine HCG, Qual Negative 06/15/17 00:10: Urine Color Yellow, Urine Appearance Clear, Urine pH 6.0, Ur Specific [place] 1.010, Urine Protein Negative, Urine Glucose (UA) Negative, Urine Ketones Negative, Urine Blood Small H, Urine Nitrate Negative, Urine Bilirubin Negative, Urine Urobilinogen 0.2, Ur Leukocyte Esterase Small H, Urine RBC 1 - 3, Urine WBC 2 - 5, Ur Epithelial Cells 1 - 3, Urine Bacteria Mod Vital Signs Temp Pulse Resp BP Pulse Ox 06/16/17 06:55 98.3 F 93 H 20 97/57 L 06/15/17 16:00 98 H 97/55 L 06/15/17 04:00 98.1 F 68 18 118/68 100 06/15/17 02:18 58 L 18 113/62 99 06/15/17 00:22 112 H 20 116/77 98 06/15/17 00:03 98.2 F DSM 5 Symptoms Update: Shortly patient is 22-year-old female with unknown psychiatric h/o, unknown h/o suicidal attempts, self reported h/o depression, anxiety, denied h/ o suicidal attempts, pt was brought in by her mother s/p overdose on medications , pt made statements that she wanted to end up her live due to severe depression , pt was noncompliant with her medications for the past week (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 pt was seen and examined at the treatment team room, pt has some positive changes, less irritable, less dramatic, more pleasant. appears to be less depressed, affect is more reactive, tolerates meds well. good appetite and sleep. when pt was asked how does she feel that she is alive, pt said "I am good with it now, I could deal with myself now", pt was able to identify 5 steps to prevent suicidal attempts (pt said she will distract herself from the bad thoughts, calling to friends/boyfriend/mother, then watch TV, physical exercise/ sleep/ call 911 or go to the ED) Pt tolerates meds well, AIMS 0, no EPS. MSE: Pt deemed to be reliable less suspicious. Pt looks stated age, acceptable personal hygiene, good ADLs, there no psychomotor agitation or retardation, speech was: more productive, eye contact: fair, mood described: "I feel better" , affect: constricted, but more reactive, thought process: goal directed, thought content: pt s/p suicidal attempt, at the moment of the interview contracted for safety, denied HI, pt denied v/a/t hallucinations, denied paranoid ideation, insight/judgment:improving, impulses are better controlled. Impression: r/o bipolar spectrum disorder, most recent episode depressed r/o borderline personality disorder Treatment plan: Milieu/structure/supportive therapy Medical consult appreciated, see medical team note for more detailed info Med management prozac 30mg po daily for depressive symptoms abilify 5 mg po bid for mood stabilization remeron d/c benadryl PRN for insomnia Follow up on labs Will monitor closely SW evaluation for d/c planning Pt was educated about risk/benefits and alternatives of medications, coping strategies (safety plan, suicide prevention), relapse prevention, importance of follow up with psychiatrist and therapist, stay away from drugs/alcohol/smoking family meeting tomorrow Medication Change: No (prozac increased yesterday) Medical Record Reviewed: Yes Mental Status Examination - Homicidal Ideation Homicidal Ideation: No Goal/Treatment Plan - Goal/Treatment Plan Need for Continued Stay: Remain at risks for inpatient hospitalization, Severe depression anxiety, Discharge may exacerbated symptoms, Severe functional impairment Estimated Date of D/C: 06/21/17
[2017-06-20 06:56] VITALS: BP 103/55; PULSE 73; RESP 17; TEMP 98.2; O2SAT 99
[2017-06-20] MEDS: [UNRECOGNIZED DRUG - MIXTURE] PO SCH (08:44)
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
== END 2017-06-20 16:07 | disposition home or self-care (01) | DRG 881 ==
LOC: ED 23:43 → ERH 06-15 04:29 → PSYC 06-15 05:37
PROVIDERS: ADMIT Psychiatry & Neurology Psychiatry; ATTEND Psychiatry & Neurology Psychiatry
PROC: GZ3ZZZZ Medication Management (ICD-10-PCS; principal; 2017-06-16)
DX: F32.9 Major depressive disorder, single episode, unspecified (principal); T42.4X2A Poisoning by benzodiazepines, intentional self-harm, initial encounter; Z91.14 Patient's other noncompliance with medication regimen; R45.851 Suicidal ideations; F41.1 Generalized anxiety disorder; E78.00 Pure hypercholesterolemia, unspecified; G47.00 Insomnia, unspecified; Y92.009 Unspecified place in unspecified non-institutional (private) residence as the place of occurrence of the external cause; Z81.8 Family history of other mental and behavioral disorders